=== PATIENT | female | born 1955 | race Caucasian/White ===

== ENCOUNTER 2017-11-05 13:38 | Inpatient (IN) | payer MEDICARE, MEDICAID ==
[~2017-11-05] VITALS: Ht 160 cm; Wt 59.0 kg
[2017-11-05 14:00] LABS: BASOPHILS % (AUTO) 0.3 % (0-1); EOSINOPHILS # (AUTO) 0.1 X10'3 (0-0.9); EOSINOPHILS % (AUTO) 0.9 % (0-6); HEMATOCRIT 45.4 % (35.0-45.0); HEMOGLOBIN 15.6 g/dl (12.0-16.0); LYMPHOCYTES # (AUTO) 2.5 X10'3 (1.1-4.8); LYMPHOCYTES % (AUTO) 23.3 % (21-51); MEAN CORPUSCULAR HEMOGLOBIN 32.9 PG (27.0-31.0); MEAN CORPUSCULAR HGB CONC 34.5 % (33.0-36.5); MEAN CORPUSCULAR VOLUME 95.4 FL (78-98); MEAN PLATELET VOLUME 6.6 FL (7.4-10.4); MONOCYTES # (AUTO) 0.6 X10'3 (0-0.9); MONOCYTES % (AUTO) 5.7 % (2-12); NEUTROPHILS # (AUTO) 7.6 X10'3 (1.8-7.7); NEUTROPHILS % (AUTO) 69.8 % (42-75); PLATELET COUNT 293 X10'3 (140-440); RED BLOOD COUNT 4.76 X10'6 (4.20-5.60); RED CELL DISTRIBUTION WIDTH 14.3 % (11.5-14.5); WHITE BLOOD COUNT 10.9 X10'3 (4.5-11.0)
[2017-11-05 14:10] LABS: INR 0.9 INR; PARTIAL THROMBOPLASTIN TIME 26 SECONDS (22-32); PROTHROMBIN TIME 9.8 SECONDS (9.0-12.0)
[2017-11-05 14:14] LABS: ALANINE AMINOTRANSFERASE 29 U/L (12-78); ALBUMIN/GLOBULIN RATIO 1.3 (1.1-1.5); ALKALINE PHOSPHATASE 149 IU/L (46-116); ANION GAP 7 (8-16); ASPARTATE AMINO TRANSFERASE 16 U/L (10-37); BILIRUBIN,TOTAL 0.6 MG/DL (0.1-1.0); BLOOD UREA NITROGEN 12 MG/DL (7-18); BUN/CREATININE RATIO 17.4 (6.6-38.0); CALCIUM 9.1 MG/DL (8.5-10.1); CHLORIDE 105 MMOL/L (99-107); CREATININE 0.69 MG/DL (0.40-0.90); GLUCOSE 104 MG/DL (70-104); POTASSIUM 3.7 MMOL/L (3.5-5.1); SODIUM 141 MMOL/L (135-145); TOTAL CARBON DIOXIDE 28.7 MMOL/L (24-32); TOTAL PROTEIN 7.2 G/DL (6.4-8.2); eGFR 86 ML/MIN
[2017-11-05] MEDS ORDERED: ipratropium/albuterol 3ml nebule NEB ONE (14:15)
[2017-11-05] MEDS ORDERED: aspirin 81mg tab.chew PO ONE (14:15)
[2017-11-05] MEDS ORDERED: HYDROcodone/acetaminophen 10/325mg tab PO ONE (14:20)
[2017-11-05] MEDS ORDERED: CLON0.1T PO (14:35)
[2017-11-05] MEDS ORDERED: ESTR1TAB19 PO (14:44)
[2017-11-05] MEDS ORDERED: LAMO150T2 PO (14:44)
[2017-11-05] MEDS ORDERED: BUPR200T3 PO (14:44)
[2017-11-05] MEDS ORDERED: DULO-31 PO (14:44)
[2017-11-05] MEDS ORDERED: ESZO3TAB39 PO (14:44)
[2017-11-05] MEDS ORDERED: MELO-102 PO (14:44)
[2017-11-05] MEDS ORDERED: ARIP5TAB4 PO (14:44)
[2017-11-05] MEDS ORDERED: ASPI-611 PO (14:44)
[2017-11-05] MEDS ORDERED: MIRT15TA PO (14:44)
[2017-11-05] MEDS ORDERED: LOVA20TA2 PO (14:44)
[2017-11-05] MEDS ORDERED: LISI-600 PO (14:44)
[2017-11-05] MEDS ORDERED: LEVO50TA8 PO (14:44)
[2017-11-05] MEDS ORDERED: nitroGLYCERIN 0.4mg SUBLingual tab SL PRN (14:55)
[2017-11-05] MEDS ORDERED: methylPREDNISolone sod succ 125mg/2ml vial IV ONE (15:00)
[2017-11-05] MEDS ORDERED: CefTRIAXone/D5W-Rocephin 1gm 50 ML IV ONE (15:00)
[2017-11-05 15:26] LABS: ABG BASE EXCESS -1.7 mmol/L (-2.0-3.0); ABG HCO3 21.8 mmol/L (22.0-26.0); ABG OXYGEN SATURATION 97.6 % (95-98); ABG PCO2 (T) 33.3 mmHg (32.0-45.0); ABG PH (T) 7.432 (7.350-7.450); ABG PO2 (T) 100.2 mmHg (83-108); ALLEN'S TEST Positive; FCOHb 7.3 % (0.5-1.5); FLOW 2 L/min; FMetHb 0.1 % (0.3-1.12); FO2Hb 90.4 % (94-100); PATIENT TEMPERATURE 36.7; TOTAL HEMOGLOBIN 15.7 G/dl (12.0-16.0)
[2017-11-05] MEDS ORDERED: normal saline 1000ml 1,000 ML IV SCH (16:02)
[2017-11-05] MEDS ORDERED: magnesium 4gm in 100ml NS 100 ML IV PRN (16:05)
[2017-11-05] MEDS ORDERED: acetaminophen 325mg tablet PO PRN ×2 (16:05)
[2017-11-05] MEDS ORDERED: magnesium Cl slow-release 64mg tablet PO PRN (16:05)
[2017-11-05] MEDS ORDERED: HYDROcodone/acetaminophen 5mg/325mg tablet PO PRN (16:05)
[2017-11-05] MEDS ORDERED: potassium Cl 40MEQ/NS 500ml 500 ML IV PRN ×2 (16:05)
[2017-11-05] MEDS ORDERED: ondansetron/PF 4mg/2ml inj IV PRN (16:05)
[2017-11-05] MEDS ORDERED: mag hydrox/Alum hydrox/simeth 30ml oral suspension PO PRN (16:05)
[2017-11-05] MEDS ORDERED: magnesium hydroxide 30ml (MOM) UD suspension PO PRN (16:05)
[2017-11-05] MEDS ORDERED: potassium Cl 20 mEq SR tablet PO PRN ×2 (16:05)
[2017-11-05] MEDS ORDERED: magnesium 2GM in 50ml NS 50 ML IV PRN (16:05)
[2017-11-05] MEDS: HYDROcodone/acetaminophen 10/325mg tab PO PRN ×2 (17:19→21:59)
[2017-11-05 18:50] VITALS: BP 146/89
[2017-11-05] MEDS: duloxetine 30mg CAPSULE.DR PO SCH (20:00)
[2017-11-05] MEDS: buPROPion SR 100mg tab PO SCH (20:00)
[2017-11-05] MEDS: ipratropium/albuterol 3ml nebule NEB SCH (20:12)
[2017-11-05] MEDS: docusate sod 100mg capsule PO SCH (20:46)
[2017-11-05] MEDS ORDERED: cloNIDine 0.1 mg tablet PO SCH (21:00)
[2017-11-05] MEDS ORDERED: non-formulary drug (Eszopiclone 1 TAB) PO SCH (21:00)
[2017-11-05] MEDS ORDERED: mirtazapine 15mg tablet PO SCH (21:00)
[2017-11-05] MEDS ORDERED: atorvastatin 10mg tablet PO SCH (21:00)
[2017-11-05] MEDS ORDERED: non-formulary drug (Lovastatin* (Mevacor*) 1 TAB) PO SCH (21:00)
[2017-11-05] MEDS ORDERED: zolpidem 5mg tablet PO SCH (21:00)
[2017-11-05] MEDS ORDERED: LUNESTA 3 MG PO ONE (21:55)
[2017-11-05 22:00] VITALS: BP_SYST 133; BP_SYST 147; BP_DIAS 78; BP_DIAS 79; BP_DIAS 85
[2017-11-06] MEDS: HYDROcodone/acetaminophen 10/325mg tab PO PRN ×3 (02:03→10:40)
[2017-11-06 02:47] LABS: BASOPHILS % (AUTO) 0.2 % (0-1); EOSINOPHILS % (AUTO) 0 % (0-6); HEMOGLOBIN 14.8 g/dl (12.0-16.0); LYMPHOCYTES % (AUTO) 9.5 % (21-51); MEAN CORPUSCULAR HEMOGLOBIN 33.1 PG (27.0-31.0); MEAN CORPUSCULAR HGB CONC 34.5 % (33.0-36.5); MEAN CORPUSCULAR VOLUME 96.1 FL (78-98); MEAN PLATELET VOLUME 7.2 FL (7.4-10.4); MONOCYTES # (AUTO) 0.1 X10'3 (0-0.9); MONOCYTES % (AUTO) 1.3 % (2-12); NEUTROPHILS # (AUTO) 9.7 X10'3 (1.8-7.7); PLATELET COUNT 269 X10'3 (140-440); RED BLOOD COUNT 4.47 X10'6 (4.20-5.60); RED CELL DISTRIBUTION WIDTH 14.7 % (11.5-14.5); WHITE BLOOD COUNT 10.9 X10'3 (4.5-11.0)
[2017-11-06 03:27] LABS: ANION GAP 10 (8-16); BLOOD UREA NITROGEN 21 MG/DL (7-18); BUN/CREATININE RATIO 26.6 (6.6-38.0); CHLORIDE 102 MMOL/L (99-107); CREATININE 0.79 MG/DL (0.40-0.90); GLUCOSE 145 MG/DL (70-104); POTASSIUM 4.2 MMOL/L (3.5-5.1); SODIUM 138 MMOL/L (135-145); TOTAL CARBON DIOXIDE 26.4 MMOL/L (24-32)
[2017-11-06 03:28] LABS: ALANINE AMINOTRANSFERASE 24 U/L (12-78); ALBUMIN 3.4 G/DL (3.4-5.0); ALBUMIN/GLOBULIN RATIO 1.1 (1.1-1.5); ALKALINE PHOSPHATASE 124 IU/L (46-116); ASPARTATE AMINO TRANSFERASE 14 U/L (10-37); BILIRUBIN,TOTAL 0.5 MG/DL (0.1-1.0); CALCIUM 8.6 MG/DL (8.5-10.1); TOTAL PROTEIN 6.4 G/DL (6.4-8.2); eGFR 74 ML/MIN
[2017-11-06 03:30] LABS: MAGNESIUM 2.1 MG/DL (1.5-2.4)
[2017-11-06] MEDS: ipratropium/albuterol 3ml nebule NEB SCH ×2 (03:35→08:33)
[2017-11-06 05:00] VITALS: BP 117/76
[2017-11-06] MEDS ORDERED: levoTHYROXINE 25mcg tablet PO SCH (07:00)
[2017-11-06] MEDS: duloxetine 30mg CAPSULE.DR PO SCH (07:14)
[2017-11-06] MEDS: buPROPion SR 100mg tab PO SCH (07:14)
[2017-11-06] MEDS: docusate sod 100mg capsule PO SCH (07:15)
[2017-11-06] MEDS ORDERED: K and/or MAG REPLACEMENT MC SCH (08:00)
[2017-11-06] MEDS ORDERED: non-formulary drug (Aspirin (Aspir 81) 1 TAB) PO SCH (08:00)
[2017-11-06] MEDS ORDERED: non-formulary drug (Levothyroxine Sodium 1 TAB) PO SCH (08:00)
[2017-11-06] MEDS ORDERED: aspirin 81mg tablet.DR PO SCH (08:00)
[2017-11-06] MEDS ORDERED: levoFLOXACIN 250mg tablet PO SCH (08:00)
[2017-11-06] MEDS ORDERED: non-formulary drug (Lamotrigine* (Lamictal*) 1 TAB) PO SCH (08:00)
[2017-11-06] MEDS ORDERED: lisinopril 20mg tablet PO SCH (08:00)
[2017-11-06] MEDS ORDERED: enoxaparin 40mg/0.4ml syringe SQ SCH (08:00)
[2017-11-06] MEDS ORDERED: aripiprazole 5mg tablet PO SCH (08:00)
[2017-11-06] MEDS ORDERED: methylPREDNISolone sod succ/PF 40mg inj. IV SCH (08:00)
[2017-11-06] MEDS ORDERED: lamoTRIgine 100mg tablet PO SCH (08:00)
[2017-11-06 10:00] VITALS: BP_SYST 149; BP_SYST 154; BP_SYST 159; BP_DIAS 76; BP_DIAS 79; BP_DIAS 83
[2017-11-06] MEDS ORDERED: LEVO250T58 PO (10:26)
[2017-11-06] MEDS ORDERED: lactobacillus rhamnosus 10,000 MMU CELLS/CAPSULE PO SCH (20:00)
[2017-11-06] MEDS ORDERED: LUNESTA 3 MG PO SCH (21:00)
== END 2017-11-06 12:15 | disposition home or self-care (01) | DRG 204 ==
LOC: ER 13:38 → ORTHO 4S 17:40
PROVIDERS: ADMIT Internal Medicine; ATTEND Internal Medicine
DX: R06.02 Shortness of breath (principal); E03.9 Hypothyroidism, unspecified; E78.5 Hyperlipidemia, unspecified; J06.9 Acute upper respiratory infection, unspecified; G89.29 Other chronic pain; I10 Essential (primary) hypertension; F17.210 Nicotine dependence, cigarettes, uncomplicated; F31.9 Bipolar disorder, unspecified; F41.9 Anxiety disorder, unspecified; G47.00 Insomnia, unspecified; G47.9 Sleep disorder, unspecified; M54.5 Low back pain; R07.89 Other chest pain; Z79.899 Other long term (current) drug therapy; Z88.8 Allergy status to other drugs, medicaments and biological substances
CPT/HCPCS: 36415; 36600; 71045; 80053; 82803; 83605; 83735; 83880; 84443; 84484; 85018; 85025; 85610; 85651; 85730; 87040; 87070; 93005; 93306; 94640; 94760; J0696; J1650; J2920; J2930; J7030

== ENCOUNTER 2018-02-23 18:03 | Emergency (ER) | payer MEDICARE, MEDICAID ==
[~2018-02-23] VITALS: Ht 160 cm; Wt 55.6 kg
[~2018-02-23 18:03] MED LIST: ARIP5TAB4 PO; ASPI-611 PO; BUPR200T3 PO; CLON0.1T PO; DULO-31 PO; ESZO3TAB40 PO; LAMO150T2 PO; LEVO250T58 PO; LEVO50TA8 PO; LISI-600 PO; LOVA20TA2 PO; MIRT15TA PO
[2018-02-23 18:13] VITALS: BP 154/85
[2018-02-23 19:07] LABS: BASOPHILS # (AUTO) 0.1 X10'3 (0-0.2); BASOPHILS % (AUTO) 0.6 % (0-1); EOSINOPHILS # (AUTO) 0.1 X10'3 (0-0.9); HEMATOCRIT 47.5 % (35.0-45.0); HEMOGLOBIN 15.9 g/dl (12.0-16.0); LYMPHOCYTES # (AUTO) 3.4 X10'3 (1.1-4.8); LYMPHOCYTES % (AUTO) 34.9 % (21-51); MEAN CORPUSCULAR HEMOGLOBIN 32.4 PG (27.0-31.0); MEAN CORPUSCULAR HGB CONC 33.4 % (33.0-36.5); MEAN CORPUSCULAR VOLUME 96.9 FL (78-98); MEAN PLATELET VOLUME 6.9 FL (7.4-10.4); MONOCYTES # (AUTO) 0.8 X10'3 (0-0.9); MONOCYTES % (AUTO) 8.7 % (2-12); NEUTROPHILS # (AUTO) 5.3 X10'3 (1.8-7.7); NEUTROPHILS % (AUTO) 54.8 % (42-75); PLATELET COUNT 327 X10'3 (140-440); RED CELL DISTRIBUTION WIDTH 13.4 % (11.5-14.5); WHITE BLOOD COUNT 9.7 X10'3 (4.5-11.0)
[2018-02-23 19:18] LABS: INR 0.9 INR; PARTIAL THROMBOPLASTIN TIME 24 SECONDS (22-32); PROTHROMBIN TIME 9.6 SECONDS (9.0-12.0)
[2018-02-23 19:22] LABS: ALANINE AMINOTRANSFERASE 26 U/L (12-78); ALBUMIN 3.9 G/DL (3.4-5.0); ALBUMIN/GLOBULIN RATIO 1.2 (1.1-1.5); ALKALINE PHOSPHATASE 118 IU/L (46-116); ANION GAP 8 (8-16); ASPARTATE AMINO TRANSFERASE 16 U/L (10-37); BILIRUBIN,TOTAL 0.3 MG/DL (0.1-1.0); BLOOD UREA NITROGEN 7 MG/DL (7-18); BUN/CREATININE RATIO 10.8 (6.6-38.0); CALCIUM 9.3 MG/DL (8.5-10.1); CHLORIDE 101 MMOL/L (99-107); CREATININE 0.65 MG/DL (0.40-0.90); GLUCOSE 95 MG/DL (70-104); POTASSIUM 3.3 MMOL/L (3.5-5.1); SODIUM 140 MMOL/L (135-145); TOTAL CARBON DIOXIDE 31.3 MMOL/L (24-32); TOTAL PROTEIN 7.1 G/DL (6.4-8.2); eGFR > 90 ML/MIN
[2018-02-23] MEDS ORDERED: normal saline 1000ml 1,000 ML IV ONE (20:25)
[2018-02-23] MEDS ORDERED: metoclopramide 5 mg/ml inj IV ONE (20:25)
[2018-02-23] MEDS ORDERED: diphenhydrAMINE 50 mg/ml inj IV ONE (20:25)
[2018-02-23] MEDS ORDERED: ketorolac trometh. 30mg/ml inj. IV ONE (20:25)
[2018-02-23] MEDS ORDERED: ondansetron/PF 4mg/2ml inj IV ONE (20:30)
[2018-02-23] MEDS ORDERED: HYDR-3964 PO (21:36)
== END 2018-02-23 22:26 | disposition home or self-care (01) ==
LOC: ER 18:04
DX: G44.009 Cluster headache syndrome, unspecified, not intractable (principal); I10 Essential (primary) hypertension; E78.00 Pure hypercholesterolemia, unspecified; E03.9 Hypothyroidism, unspecified; G89.29 Other chronic pain; M54.9 Dorsalgia, unspecified; Z90.710 Acquired absence of both cervix and uterus; Z88.8 Allergy status to other drugs, medicaments and biological substances; Z79.82 Long term (current) use of aspirin
CPT/HCPCS: 36415; 71045; 80053; 84484; 85025; 85610; 85730; 93005; 96374; 96375; 99285; J1200; J1885; J2405; J7030

== ENCOUNTER 2020-11-27 09:25 | Emergency (ER) | payer MEDICARE, MEDICAID ==
[~2020-11-27] VITALS: Ht 160 cm; Wt 64.5 kg
[~2020-11-27 09:25] MED LIST changes: +ARIP5TAB14 PO; -ARIP5TAB4 PO; -LISI-600 PO; +LISI20TA28 PO; +MIRT-116 PO; -MIRT15TA PO
[2020-11-27] MEDS ORDERED: ondansetron/PF 4mg/2ml inj IV ONE ×2 (10:30→11:20)
[2020-11-27] MEDS ORDERED: morphine 4 MG/ML inj SYRINge IV ONE ×4 (10:30→14:10)
[2020-11-27 10:44] LABS: BASOPHILS # (AUTO) 0.1 X10'3 (0-0.2); BASOPHILS % (AUTO) 0.7 % (0-1); EOSINOPHILS % (AUTO) 0.1 % (0-6); HEMATOCRIT 39.8 % (35.0-45.0); HEMOGLOBIN 13.7 g/dl (12.0-16.0); LYMPHOCYTES # (AUTO) 1.8 X10'3 (1.1-4.8); MEAN CORPUSCULAR HEMOGLOBIN 32.8 PG (27.0-31.0); MEAN CORPUSCULAR HGB CONC 34.5 g/dL (33.0-36.5); MEAN CORPUSCULAR VOLUME 94.9 FL (78-98); MEAN PLATELET VOLUME 7.3 FL (7.4-10.4); MONOCYTES # (AUTO) 0.9 X10'3 (0-0.9); MONOCYTES % (AUTO) 8.3 % (2-12); NEUTROPHILS # (AUTO) 7.7 X10'3 (1.8-7.7); NEUTROPHILS % (AUTO) 73.9 % (42-75); PLATELET COUNT 247 X10'3 (140-440); RED CELL DISTRIBUTION WIDTH 12.9 % (11.5-14.5); WHITE BLOOD COUNT 10.4 X10'3 (4.5-11.0)
[2020-11-27 11:04] LABS: PARTIAL THROMBOPLASTIN TIME 26 SECONDS (22-32)
[2020-11-27 11:08] LABS: ALANINE AMINOTRANSFERASE 53 U/L (12-78); ALBUMIN/GLOBULIN RATIO 1.4 (1.1-1.5); ALKALINE PHOSPHATASE 178 IU/L (46-116); ANION GAP 10 (8-16); ASPARTATE AMINO TRANSFERASE 49 U/L (10-37); BILIRUBIN,TOTAL 0.5 MG/DL (0.1-1.0); BLOOD UREA NITROGEN 9 MG/DL (7-18); BUN/CREATININE RATIO 12.9 (6.6-38.0); CHLORIDE 105 MMOL/L (99-107); GLUCOSE 104 MG/DL (70-104); LIPASE < 50 U/L (73-393); POTASSIUM 3.7 MMOL/L (3.5-5.1); SODIUM 141 MMOL/L (135-145); TOTAL CARBON DIOXIDE 25.9 MMOL/L (24-32); TOTAL PROTEIN 6.8 G/DL (6.4-8.2); eGFR 84 ML/MIN
[2020-11-27] MEDS ORDERED: iohexol 300mg/ml 100ml inj. ONE (11:17)
[2020-11-27] MEDS: BUPIVAcaine 0.5% W/EPI /PF 30ml vial IJ ONE ×2 (11:40→12:27)
[2020-11-27] MEDS ORDERED: ceFAZolin 1gm IM kit IM ONE (11:40)
--- NOTE | 2020-11-27 12:14 | NUR ---
C-collar applied to pt. pt back from CT.
--- NOTE | 2020-11-27 12:33 | NUR ---
[facility] [employer] BILL AT BEDSIDE FOR ORTHO ORDERS
--- NOTE | 2020-11-27 13:00 | NUR ---
called report to nurse Baltazar in ER at [facility]. waiting on transport, not sure of when they will arrive.
[2020-11-27 14:29] VITALS: BP 112/73
== END 2020-11-27 14:37 | disposition short-term general hospital (02) ==
LOC: ER 09:26
DX: S52.502A Unspecified fracture of the lower end of left radius, initial encounter for closed fracture (principal); S62.305A Unspecified fracture of fourth metacarpal bone, left hand, initial encounter for closed fracture; Z20.822 Contact with and (suspected) exposure to COVID-19; E78.00 Pure hypercholesterolemia, unspecified; I10 Essential (primary) hypertension; E03.9 Hypothyroidism, unspecified; G89.29 Other chronic pain; F31.9 Bipolar disorder, unspecified; F17.200 Nicotine dependence, unspecified, uncomplicated; Z90.89 Acquired absence of other organs; Z90.710 Acquired absence of both cervix and uterus; Z98.890 Other specified postprocedural states; Z88.0 Allergy status to penicillin; Z88.2 Allergy status to sulfonamides; Z88.1 Allergy status to other antibiotic agents; Z88.8 Allergy status to other drugs, medicaments and biological substances; Z88.6 Allergy status to analgesic agent; Z79.82 Long term (current) use of aspirin; Z79.899 Other long term (current) drug therapy; W10.9XXA Fall (on) (from) unspecified stairs and steps, initial encounter; Y93.89 Activity, other specified; Y92.019 Unspecified place in single-family (private) house as the place of occurrence of the external cause; R51.9 Headache, unspecified; R11.0 Nausea
CPT/HCPCS: 25605; 36415; 70450; 70486; 71260; 72125; 73100; 73110; 74177; 80053; 83690; 85025; 85610; 85730; 87635; 96374; 96375; 96376; 99291; C9803; J2270; J2405; Q9967